=== PATIENT | male | born 1990 | race Caucasian/White ===

== ENCOUNTER → 2019-05-19 | Outpatient (CLI) | payer OTHER ==
--- NOTE | 2019-05-19 09:30 | REP ---
REASON: Pulmonary nodule workup. There are no priors for comparison. Calcified mediastinal and right hilar lymph nodes are present. There is no adenopathy. There are no pleural or pericardial effusions. The imaged upper abdomen and imaged osseous structures are within normal limits. Evaluation of the lung mallory shows an 8 mm sized calcification in the right upper lobe consistent with a calcified granuloma. There is a smaller central calcifying 7 mm sized nodule in the left lower lobe. In the left lower lobe more superiorly, there is a pleural-based subtle somewhat patchy/ground-glass opacity with ill-defined margins measuring 1.6 cm in its greatest dimension. IMPRESSION: 1. Pulmonary calcifications, as described above, consistent with granulomas. 2. Subtle zone of parenchymal density which is pleural-based and seen in the left lower lobe as described above. This is most consistent with a small zone of fibrosis or lung parenchymal scar, however, I would recommend a 3-month followup to insure stability. The followup should be a chest CT. There is on revised Fleischner society criteria and the recommendation for followup of such findings. Electronically Signed by Asad Lin DO 05/19/2019 11:10 A
== END ==
LOC: M RAD 08:20
PROVIDERS: ATTEND Family Medicine
DX: J98.4 Other disorders of lung (principal); R91.8 Other nonspecific abnormal finding of lung field

== ENCOUNTER 2019-07-05 16:57 | Emergency (ER) | payer OTHER ==
[~2019-07-05] VITALS: Ht 177.8 cm; Wt 84.1 kg
[2019-07-05] MEDS ORDERED: MORPHINE 4 MG/ML 1ML VIAL/SYRINGE (J2270) IV ONE (17:15)
[2019-07-05] MEDS ORDERED: cefTRIAXone SOD 2 GM in D5W MINI-BAG PLUS 50 ML IV ONE (17:30)
[2019-07-05] MEDS ORDERED: LIDOCAINE 2% MDV 20ML VIAL SC ONE (18:00)
[2019-07-05] MEDS ORDERED: PERC5TAB12 PO (18:35)
[2019-07-05] MEDS ORDERED: BACT800T5 PO (18:35)
[2019-07-05 19:15] VITALS: BP 137/74
--- NOTE | 2019-07-06 01:23 | REP ---
RING FINGER SERIES, FOUR VIEWS: HISTORY: Finger amputation. Check bony involvement. FINDINGS: Four views of the left ring finger demonstrate a comminuted open, somewhat displaced fracture of the distal tuft of the ring finger. Distal tuft fracture fragments are somewhat displaced in a radial and palmar direction. No opaque foreign body is seen. Overlying dressing is noted. IMPRESSION: Open comminuted, somewhat displaced crush-type fracture distal tuft ring finger. Electronically Signed by Stewart Wong MD 07/06/2019 08:23 A
[2019-07-06] MEDS ORDERED: PERC5TAB12 PO (17:04)
== END 2019-07-05 19:19 | disposition home or self-care (01) ==
LOC: M ED 16:57
DX: S68.625A Partial traumatic transphalangeal amputation of left ring finger, initial encounter (principal); W23.0XXA Caught, crushed, jammed, or pinched between moving objects, initial encounter; Y92.89 Other specified places as the place of occurrence of the external cause; F17.220 Nicotine dependence, chewing tobacco, uncomplicated
CPT/HCPCS: 12001; 73140; 96365; 96375; 99284; J0696; J2270

== ENCOUNTER 2019-11-04 07:47 | Emergency (ER) | payer OTHER ==
[~2019-11-04] VITALS: Ht 175.3 cm; Wt 83.6 kg
[~2019-11-04 07:47] MED LIST: BACT800T5 PO; PERC5TAB12 PO
[2019-11-04] MEDS ORDERED: LIDOCAINE 1% MDV 20ML VIAL SC ONE (08:15)
[2019-11-04] MEDS ORDERED: LIDOCAINE W/EPINEPHRINE 1% 20ML VIAL SC ONE (09:15)
[2019-11-04 11:22] VITALS: BP 146/67
--- NOTE | 2019-11-11 09:38 | ER ---
DATE OF CONSULTATION: 11/04/2019 REASON FOR CONSULTATION: Laceration left thigh. 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 Apparently the knife slipped or was otherwise deflected and he accidentally stabbed himself in his anteromedial left thigh. The patient describes the knife as having a 4 inch blade and reports that when he took the knife back out it was bloody about skilled nursing up the blade. He had some immediate bleeding which was controlled with direct pressure and he was brought to the emergency department for evaluation. In the emergency department the wound was cleaned and the physicians carpenter assistant installer was preparing to close it but on two occasions the patient got out of bed and it was reported that he had blood spurting from the wound. I was asked to evaluate the patient regarding the need for further evaluation or treatment. MEDICAL HISTORY: The patient has no significant active medical problems. SURGICAL HISTORY: Significant for some previous elective surgery on his left leg. FAMILY HISTORY: Noncontributory. REVIEW OF SYSTEMS: Reveals no history of bleeding diathesis. He was ambulatory on the leg after the injury. He denies any significant chest pain, shortness of breath or abdominal discomfort. ALLERGIES: NONE KNOWN. MEDICATIONS: On no routine home medications. PHYSICAL EXAMINATION: The patient is a pleasant young man lying quietly on the emergency department stretcher. Examination is limited to the left lower extremity. He has a longitudinal laceration in the anteromedial aspect of the left distal thigh. This is approximately at the juncture of the mid and distal thirds of the thigh. This is approximately 2.5 to perhaps 3 cm in length and in the center of the wound the skin edges are about 1 cm. There is no ongoing bleeding noted at this time. The wound appears to be a clean laceration. He has palpable popliteal pulse on the left and palpable pedal pulses on both sides that are equal. I gently the wound edges with Q-tips which he described as being painful. There appears to be some either old blood or hemorrhage within the underlying muscle in the depths of the wound about 1.5 to 2 cm. No bleeding started during the exam. IMPRESSION: Laceration left distal thigh. He described the injury for me and indicates that the blade would have entered the left thigh somewhat from the right. There is no evident bleeding currently. The blade presumably did penetrate the muscle fascia and he likely has a laceration of small portion of the muscle. There is no sign of significant venous injury and the trajectory and location of the wound would suggest that an arterial injury is extremely unlikely. He has strong palpable pulses and no bleeding currently. RECOMMENDATIONS: At this point I spoke with Ines, who has been caring for him in the emergency department. We had discussed the possibility of a CT scan of the thigh which I suspect will show some hemorrhage within the muscle of his distal thigh. I do not believe this will change his care. He is not bleeding now and I suspect the blood that was present at the time he was up was merely blood that was being released from the muscular bleeding as he moved. I think it would be reasonable to just close the wound and have him limit his activity as necessary for a time to allow this to heal. There is certainly a small risk of a wound infection but at this point the visible portions of the wound are clean. He could certainly follow up as needed in the emergency department if there were any signs of infection. MANUEL
== END 2019-11-04 11:24 | disposition home or self-care (01) ==
LOC: M ED 07:47
DX: S71.112A Laceration without foreign body, left thigh, initial encounter (principal); W26.0XXA Contact with knife, initial encounter; Y92.9 Unspecified place or not applicable; Y93.9 Activity, unspecified; Y99.9 Unspecified external cause status; F17.220 Nicotine dependence, chewing tobacco, uncomplicated

== ENCOUNTER → 2019-12-26 | Outpatient (CLI) | payer OTHER ==
--- NOTE | 2019-12-28 06:02 | REP ---
INDICATION: OTHER NON SPECIFIC ABNORMAL FINDING OF LUNG FIELD COMPARISON: 05/19/2019 TECHNIQUE: Axial noncontrast images from the thoracic inlet to the upper abdomen with coronal and sagittal reformations. This CT examination was performed using the following dose reduction techniques: Automated exposure control, adjustment of mA and/or kv according to the patient's size, and use of iterative reconstruction technique. FINDINGS: The bilateral lung mallory are well aerated. Scattered calcified granulomata and calcified lymph nodes are again identified and unchanged. Small zone of subpleural scarring in the posterior left lower lobe is again appreciated and appears less pronounced than prior examination. No acute consolidation, suspicious nodule or mass. No effusion. No pneumothorax. Tracheobronchial tree is patent. No acute adenopathy. Further evaluation of the mediastinum demonstrates normal thoracic aorta, pulmonary vasculature, and heart/pericardium. Surrounding musculoskeletal structures are intact. IMPRESSION: 1. Stable chronic granulomatous disease. 2. Small area of subpleural scarring in the posterior left lower lobe again noted and less pronounced than prior examination. 3. No acute significant mediastinal or pleuroparenchymal process appreciated. <Electronically signed by Fan Coello > 12/28/19 [id number]
== END ==
LOC: M RAD 11:37
PROVIDERS: ATTEND Internal Medicine Pulmonary Disease
DX: R91.8 Other nonspecific abnormal finding of lung field (principal)

== ENCOUNTER → 2020-08-29 | Outpatient (REF) ==
--- NOTE | 2020-08-29 12:55 | REP ---
INDICATION: INJURY TO SHOULDER. COMPARISON: None. TECHNIQUE: Three views of the right shoulder are provided. FINDINGS: The right glenohumeral and acromioclavicular joints are normally aligned. Periarticular soft tissues are unremarkable. There is a small bone island in the humeral head noted incidentally and a granulomatous calcification is seen in the right lung apex. Periarticular soft tissues are unremarkable. IMPRESSION: Negative views of the right shoulder. <Electronically signed by Charles Wong > 08/29/20 [id number]
--- NOTE | 2020-08-29 12:57 | REP ---
INDICATION: SOB COMPARISON: None. TECHNIQUE: AP and lateral left femur. FINDINGS: There is no evidence of acute fracture, dislocation, or intrinsic bone disease.There is intramedullary jose juan fixed by screws in the shaft of the left femur. No abnormal lucency is seen at the interface with adjacent bone. IMPRESSION: No fracture or dislocation. Metallic internal fixation. <Electronically signed by Gerald Schneider > 08/29/20 [id number]
--- NOTE | 2020-08-29 12:57 | REP ---
INDICATION: INJURY TO FEMUR. COMPARISON: Comparison chest CT images December 26, 2019. TECHNIQUE: Two views.. FINDINGS: The lungs are well inflated and free of infiltrate. The pleural angles are sharp. The heart size is normal. Pulmonary vasculature is not increased. No significant bony abnormality is seen. There is a granulomatous calcification in the right lung apex unchanged from the comparison CT study. IMPRESSION: No active disease.. <Electronically signed by Charles Wong > 08/29/20 [id number]
== END ==
LOC: M PLAIMG 11:55
PROVIDERS: ATTEND Internal Medicine
DX: S49.91XA Unspecified injury of right shoulder and upper arm, initial encounter (principal); X58.XXXA Exposure to other specified factors, initial encounter; Y92.9 Unspecified place or not applicable